=== PATIENT | male | born 1990 | race African-American/Black ===

== ENCOUNTER 2019-12-02 09:52 | Emergency (ER) | payer OTHER ==
[~2019-12-02] VITALS: Ht 195.6 cm; Wt 99.8 kg
[2019-12-02 10:01] VITALS: BP 137/80
--- NOTE | 2019-12-02 10:07 | Emergency Room Report ---
History of Present Illness General Chief Complaint: Abdominal Pain Source: Patient Present Illness HPI Disclaimer: Please note that this report is being documented using DRAGON technology. This can lead to erroneous entry secondary to incorrect interpretation by the dictating instrument. HPI: 29-year-old male history of pancreatitis presents for evaluation of abdominal pain. Symptoms present 2 days. Reports persistent vomiting inability to eat or drink. History of alcohol induced pancreatitis. The patient drinks approximately 1 L of whiskey daily for the past few months. Not currently in program but has completed them in the past. No history of withdrawal seizures or DTs. Denies anxiety, chest pain, palpitations. Denies hematemesis, diarrhea, melena or hematochezia. Denies lower abdominal tenderness. Denies recent fever, chills, cough or other symptoms. PMH: Pancreatitis, alcohol abuse PSH: Denies Allergies: Denies Social Hx: Daily alcohol, daily tobacco, occasional THC Allergies: Coded Allergies: No Known Allergies (Unverified , 12/02/19) COVID-19 Screening Contact w/high risk pt: No Experienced COVID-19 symptoms?: No COVID-19 Testing performed [employer]: No Nursing Documentation-PMH Past Medical History: No History, Except For Review of Systems All Other Systems: negative except mentioned in HPI Physical Exam Vital Signs Date Time Temp Pulse Resp B/P (MAP) Pulse Ox O2 Delivery O2 Flow Rate FiO2 12/02/19 09:54 97.5 57 19 144/84 (104) 100 Room Air General: Awake and alert, moderately uncomfortable HEENT: NC/AT. EOMI. Cardiovascular: RRR. S1 and S2 normal. No murmur appreciated Resp: Normal work of breathing. No cough, wheezing or crackles appreciated Abdomen: Abdomen is soft, nondistended. Tender palpation in the right upper quadrant, epigastric and left upper quadrant. Negative Gerardo's. No lower quadrant tenderness. No guarding, no rebound. No masses. Skin: Intact. No abrasions, laceration or rash over the exposed skin MSK: Normal tone and bulk. Moving all extremities. No obvious deformity. Neuro: Awake and alert. Mentating appropriately. Medical Decision Making Diagnostic Impression: Primary Impression: Pancreatitis Additional Impression: Fatty liver ER Course 29-year-old male presenting for evaluation of abdominal pain and vomiting. Concern for pancreatitis, gastritis, gastroenteritis, cholecystitis among others. Labs were obtained showing elevated liver enzymes and elevated lipase consistent with acute pancreatitis. Alcohol negative. Labs otherwise within normal limits aside from elevation in hemoglobin count suspect hemoconcentration. CT scan was obtained showing peripancreatic stranding consistent with pancreatitis but no evidence of cyst or necrosis. Also noted some fatty infiltration of the liver and possible colitis versus under distention of the bowels. Ultrasound was obtained to evaluate for gallstones but no gallstones were visualized. There is some fatty liver changes consistent with CT and the patient's history. Pain is well controlled, received IV fluids and is no longer vomiting. I discussed admission versus treatment at home and he elected to be treated at home at this time. He is considering doing a 30-day detox program as well. States he has a good support system at home and has completed detox in the past and would like to do it again. Will be prescribed pain medication and antiemetics. Instructed to advance his diet slowly and to return to the ED with new or worsening symptoms. Resources provided and discharge paperwork. He understands and agrees with this treatment plan. Laboratory Tests Test 12/02/19 10:10 12/02/19 12:06 White Blood Count 9.7 K/UL (4.8-10.8) Red Blood Count 5.75 M/UL (4.70-6.10) Hemoglobin 18.2 G/DL (14.2-18.0) *H Hematocrit 55.4 % (42.0-52.0) H Mean Corpuscular Volume 96 FL (80-99) Mean Corpuscular Hemoglobin 31.6 PG (27.0-31.0) H Mean Corpuscular Hemoglobin Concent 32.8 G/DL (32.0-36.0) Red Cell Distribution Width 11.6 % (11.6-14.8) Platelet Count 106 K/UL (150-450) L Mean Platelet Volume 10.8 FL (6.5-10.1) H Neutrophils (%) (Auto) 82.9 % (45.0-75.0) H Lymphocytes (%) (Auto) 11.0 % (20.0-45.0) L Monocytes (%) (Auto) 4.7 % (1.0-10.0) Eosinophils (%) (Auto) 0.5 % (0.0-3.0) Basophils (%) (Auto) 1.0 % (0.0-2.0) Sodium Level 137 MMOL/L (136-145) Potassium Level 4.7 MMOL/L (3.5-5.1) Chloride Level 95 MMOL/L (98-107) L Carbon Dioxide Level 24 MMOL/L (21-32) Anion Gap 18 mmol/L (5-15) H Blood Urea Nitrogen 11 mg/dL (7-18) Creatinine 1.2 MG/DL (0.55-1.30) Estimated Glomerular Filtration Rate > 60 mL/min (>60) Glucose Level 127 MG/DL (74-106) H Calcium Level 10.7 MG/DL (8.5-10.1) H Total Bilirubin 1.5 MG/DL (0.2-1.0) H Direct Bilirubin 0.1 MG/DL (0.0-0.3) Aspartate Amino Transferase (AST) 134 U/L (15-37) H Alanine Aminotransferase (ALT) 241 U/L (12-78) H Alkaline Phosphatase 92 U/L (46-116) Total Protein 8.8 G/DL (6.4-8.2) H Albumin 4.7 G/DL (3.4-5.0) Globulin 4.1 g/dL Albumin/Globulin Ratio 1.1 (1.0-2.7) Lipase 964 U/L (73-393) H Serum Alcohol < 3 mg/dL Urine Color Yellow Urine Appearance Clear Urine pH 5 (4.5-8.0) Urine Specific Watson 1.010 (1.005-1.035) Urine Protein 2+ (NEGATIVE) H Urine Glucose (UA) Negative (NEGATIVE) Urine Ketones 4+ (NEGATIVE) H Urine Blood Negative (NEGATIVE) Urine Nitrite Negative (NEGATIVE) Urine Bilirubin Negative (NEGATIVE) Urine Urobilinogen 1 MG/DL (0.0-1.0) H Urine Leukocyte Esterase Negative (NEGATIVE) Urine RBC Pending Urine WBC Pending Urine Squamous Epithelial Cells Pending Urine Bacteria Pending Urine Opiates Screen Negative (NEGATIVE) Urine Barbiturates Screen Negative (NEGATIVE) Phencyclidine (PCP) Screen Negative (NEGATIVE) Urine Amphetamines Screen Negative (NEGATIVE) Urine Benzodiazepines Screen Negative (NEGATIVE) Urine Cocaine Screen Negative (NEGATIVE) Urine Marijuana (THC) Screen Positive (NEGATIVE) H CT/MRI/US Diagnostic Results CT/MRI/US Diagnostic Results : [facility] Patient: STEVE PEREIRA (Male) : 86 Status: ER Date: 12/02/19 11:31 Room #: History: ABD PAIN Slices: 0 Priors: Tech: Exam request generated by [email or web address] interface Exams: CT ABDOMEN & PELVIS With Contrast Contrast: Referring Phy: WHIT^SAIDA Ordering Phy: Saida Reinoso MD Accession Numbers: [id number] Final Report EXAM: CT Abdomen and Pelvis With Intravenous Contrast CLINICAL HISTORY: ABD PAIN TECHNIQUE: Axial computed tomographyimages of the abdomen and pelviswith intravenous contrast. Sagittal and coronal reformatted imageswere created and reviewed. CTDI is 8.40 mGyand DLP is 482.30 mGy-cm. One or more of the following dose reduction techniqueswere used: automated exposure control, adjustment of the mAand/or kVaccording to patient size, use of iterative reconstruction technique. COMPARISON: No relevant prior studies available. FINDINGS: Lung bases:Unremarkable. No consolidation. No effusions. ABDOMEN: Liver:Diffuse hypodense liver, suggesting fattyinfiltration. Gallbladder and bile ducts:Unremarkable. No calcified stones. No ductal dilation. Pancreas: Subtle hazyperipancreatic stranding. The pancreas otherwise appears unremarkable. No pancreatic ductal dilatation or adjacent fluid collection. Spleen:Unremarkable. No splenomegaly. Adrenals:Unremarkable. No mass. Kidneys and ureters:Unremarkable. No solid mass. No hydronephrosis. Stomach and bowel: Mild wall thickening fromthe colonic splenic flexure through sigmoid colon. Remainder of the colon appears unremarkable. No abnormallydistended loops of small bowel. GE junction and stomach appear unremarkable. PELVIS: Appendix: The appendix appears normal. Bladder:Unremarkable. No visible stones. Reproductive: The prostate gland and seminal vesicles appear unremarkable. ABDOMEN and PELVIS: Intraperitoneal space:Unremarkable. No free air. No significant fluid collection. Bones/joints:No acute fracture. No dislocation. Soft tissues:Unremarkable. Vasculature:Unremarkable. No abdominal aortic aneurysm. Lymph nodes:Unremarkable. No enlarged lymph nodes. IMPRESSION: 1. Subtle hazyperipancreatic stranding. Recommend correlation with serumamylase and lipase to exclude an early/mild interstitial pancreatitis. No pancreatic ductal dilatation or adjacent fluid collection. 2. Mild wall thickening fromthe colonic splenic flexure through sigmoid colon. This maybe related to underdistention versus a mild colitis. No adjacent inflammatorychanges, free air , or fluid collections. 3. Diffuse hypodense liver, suggesting fattyinfiltration. Radiologist: Scout Galvin MD Electronically Signed: 12/02/19 11:45 Study ready at 11:35 and initial results transmitted at 11:45 Last Vital Signs Date Time Temp Pulse Resp B/P (MAP) Pulse Ox O2 Delivery O2 Flow Rate FiO2 12/02/19 10:01 57 19 Room Air 12/02/19 09:54 97.5 144/84 (104) 100 Disposition: HOME, SELF-CARE Condition: Stable Scripts Ondansetron Odt* (ZOFRAN ODT*) 4 Mg Tab.rapdis 4 MG BC EVERY 6 HOURS PRN for Nausea & Vomiting, #20 TAB 0 Refills Prov: Saida Reinoso MD 12/02/19 Hydrocodone Bit/Acetaminophen 5-325* (NORCO 5-325 TABLET*) 1 Each Tablet 1 TAB ORAL Q6H PRN for FOR PAIN, #12 TAB 0 Refills Prov: Saida Reinoso MD 12/02/19 Saida Reinoso MD Dec 02, 2019 10:07
[2019-12-02] MEDS ORDERED: Omnipaque-300 100ml vial INJ PRN (10:15)
[2019-12-02 11:03] LABS: ANION GAP 18 mmol/L (5-15); BLOOD UREA NITROGEN 11 mg/dL (7-18); CALCIUM 10.7 MG/DL (8.5-10.1); CARBON DIOXIDE 24 MMOL/L (21-32); CHLORIDE 95 MMOL/L (98-107); CREATININE 1.2 MG/DL (0.55-1.30); POTASSIUM 4.7 MMOL/L (3.5-5.1); SODIUM 137 MMOL/L (136-145)
[2019-12-02 11:04] LABS: EOSINOPHILS % (AUTO) 0.5 % (0.0-3.0); HEMATOCRIT 55.4 % (42.0-52.0); MEAN CORPUSCULAR VOLUME 96 FL (80-99); MONOCYTES % (AUTO) 4.7 % (1.0-10.0); NEUTROPHILS % (AUTO) 82.9 % (45.0-75.0); PLATELET COUNT 106 K/UL (150-450); RED BLOOD COUNT 5.75 M/UL (4.70-6.10); RED CELL DISTRIBUTION WIDTH 11.6 % (11.6-14.8); WHITE BLOOD COUNT 9.7 K/UL (4.8-10.8)
[2019-12-02 11:05] LABS: HEMOGLOBIN 18.2 G/DL (14.2-18.0)
[2019-12-02 11:13] LABS: ALANINE AMINOTRANSFERASE 241 U/L (12-78); ALBUMIN 4.7 G/DL (3.4-5.0); ALBUMIN/GLOBULIN RATIO 1.1 (1.0-2.7); ALKALINE PHOSPHATASE 92 U/L (46-116); ASPARTATE AMINO TRANSFERASE 134 U/L (15-37); BILIRUBIN,TOTAL 1.5 MG/DL (0.2-1.0)
[2019-12-02 11:18] LABS: BILIRUBIN,DIRECT 0.1 MG/DL (0.0-0.3)
[2019-12-02] MEDS ORDERED: Metoclopramide 10mg/2ml Inj IVP ONE (11:45)
--- NOTE | 2019-12-02 11:46 | Diagnostic Imaging Report ---
EXAM: CT Abdomen and Pelvis With Intravenous Contrast CLINICAL HISTORY: ABD PAIN TECHNIQUE: Axial computed tomography images of the abdomen and pelvis with intravenous contrast. Sagittal and coronal reformatted images were created and reviewed. CTDI is 8.40 mGy and DLP is 482.30 mGy-cm. One or more of the following dose reduction techniques were used: automated exposure control, adjustment of the mA and/or kV according to patient size, use of iterative reconstruction technique. COMPARISON: No relevant prior studies available. FINDINGS: Lung bases: Unremarkable. No consolidation. No effusions. ABDOMEN: Liver: Diffuse hypodense liver, suggesting fatty infiltration. Gallbladder and bile ducts: Unremarkable. No calcified stones. No ductal dilation. Pancreas: Subtle hazy peripancreatic stranding. The pancreas otherwise appears unremarkable. No pancreatic ductal dilatation or adjacent fluid collection. Spleen: Unremarkable. No splenomegaly. Adrenals: Unremarkable. No mass. Kidneys and ureters: Unremarkable. No solid mass. No hydronephrosis. Stomach and bowel: Mild wall thickening from the colonic splenic flexure through sigmoid colon. Remainder of the colon appears unremarkable. No abnormally distended loops of small bowel. GE junction and stomach appear unremarkable. PELVIS: Appendix: The appendix appears normal. Bladder: Unremarkable. No visible stones. Reproductive: The prostate gland and seminal vesicles appear unremarkable. ABDOMEN and PELVIS: Intraperitoneal space: Unremarkable. No free air. No significant fluid collection. Bones/joints: No acute fracture. No dislocation. Soft tissues: Unremarkable. Vasculature: Unremarkable. No abdominal aortic aneurysm. Lymph nodes: Unremarkable. No enlarged lymph nodes. IMPRESSION: 1. Subtle hazy peripancreatic stranding. Recommend correlation with serum amylase and lipase to exclude an early/mild interstitial pancreatitis. No pancreatic ductal dilatation or adjacent fluid collection. 2. Mild wall thickening from the colonic splenic flexure through sigmoid colon. This may be related to underdistention versus a mild colitis. No adjacent inflammatory changes, free air, or fluid collections. 3. Diffuse hypodense liver, suggesting fatty infiltration.
[2019-12-02] MEDS ORDERED: Morphine Sulfate 4mg/ml Inj (IV USE ONLY) IVP ONE (12:15)
[2019-12-02 13:00] VITALS: BP 132/75
--- NOTE | 2019-12-02 13:04 | Diagnostic Imaging Report ---
EXAM: US Abdomen Complete CLINICAL HISTORY: ABD PAIN TECHNIQUE: Real-time ultrasound of the abdomen with image documentation. COMPARISON: CT abdomen pelvis dated 12/02/19. FINDINGS: Liver: Liver diameter 18.6 cm, mildly enlarged. Diffusely echogenic liver. No visible parenchymal lesions. No intrahepatic biliary ductal dilatation. Gallbladder: Unremarkable. No gallstones. No wall thickening. No pericholecystic fluid. Common bile duct: Common bile duct diameter 3.7 mm, within normal limits. Pancreas: Unremarkable as visualized. Pancreatic body and tail are obscured by bowel gas. Kidneys: Right kidney length of 11.6 cm. Left kidney length of 11.3 cm. Normal cortical thickness. No visible stones. No hydronephrosis. Spleen: Spleen length of 11.9 cm, within normal limits. Aorta: Unremarkable. Visualized portions appear unremarkable without evidence of aneurysm. Inferior vena cava: Unremarkable. Free fluid: None. IMPRESSION: 1. Borderline hepatomegaly. 2. Diffusely echogenic liver, suggesting fatty infiltration.
[2019-12-02 13:28] LABS: APPEARANCE,URINE CLEAR; BILIRUBIN, URINE NEGATIVE (NEGATIVE); GLUCOSE, URINE (UA) NEGATIVE (NEGATIVE); KETONES,URINE 4+ (NEGATIVE); LEUKOCYTE ESTERASE ,URINE NEGATIVE (NEGATIVE); NITRITE,URINE NEGATIVE (NEGATIVE); PH,URINE 5 (4.5-8.0); PROTEIN,URINE 2+ (NEGATIVE); UROBILINOGEN,URINE 1 MG/DL (0.0-1.0)
[2019-12-02 13:32] LABS: COLOR,URINE YELLOW
[2019-12-02] MEDS ORDERED: ONDANSETRON ODT4 MG BC (13:32)
[2019-12-02] MEDS ORDERED: NORCO 5-325 TA1 EAC1 ORAL (13:32)
[2019-12-02 14:50] VITALS: BP 124/89
== END 2019-12-02 14:50 | disposition home or self-care (01) ==
LOC: EMR 10:29
DX: K85.90 Acute pancreatitis without necrosis or infection, unspecified (principal); K76.0 Fatty (change of) liver, not elsewhere classified
CPT/HCPCS: 36415; 74177; 76700; 80053; 80307; 81003; 82248; 83690; 85025; 96361; 96374; 96375; 99284; G0480; J2270; J2405; J2765; J7030; Q9967; S0028